=== PATIENT | male | born 1970 | race Hispanic/Latino ===

== ENCOUNTER 2020-08-22 07:26 | Emergency (ER) | payer MEDICAID ==
[2020-08-22] MEDS ORDERED: NALOXONE 2 MG/2 ML INJ IV ONE (07:56)
[2020-08-22] MEDS ORDERED: NALOXONE 2 MG/2 ML INJ ONE (07:57)
[2020-08-22 08:25] LABS: Basophils % (Auto) 0.7 % (0.0-1.8); Eosinophils # (Auto) 0.2 K/mm3 (0.0-0.4); Eosinophils % (Auto) 3.5 % (0.0-4.3); Hematocrit 39.7 % (35.5-45.6); Hemoglobin 13.2 gm/dl (11.8-15.2); Lymphocytes # (Auto) 1.2 K/mm3 (1.2-5.4); Mean Corpuscular HGB Conc 33 % (32-34); Mean Corpuscular Volume 92 fl (84-94); Monocytes # (Auto) 0.8 K/mm3 (0.0-0.8); Monocytes % (Auto) 12.6 % (0.0-7.3); Platelet Count 116 K/mm3 (140-440); Red Cell Distribution Width 14.4 % (13.2-15.2)
--- NOTE | 2020-08-22 08:39 | XRay Report ---
CHEST 1 VIEW INDICATION: ams. COMPARISON: None FINDINGS: Support devices: None. Heart: Within normal limits. Lungs/Pleura: No acute air space or interstitial disease. Additional findings: None. IMPRESSION: No acute findings. Signer Name: Steffen Mena Jr, MD Signed: 08/22/2020 8:35 AM Workstation Name: [id number]
[2020-08-22 08:46] LABS: Blood Urea Nitrogen 11 mg/dL (9-20); Calcium 8.8 mg/dL (8.4-10.2); Hemolysis Index 9
[2020-08-22 08:48] LABS: BUN/Creatinine Ratio 16
[2020-08-22 08:49] LABS: Albumin 3.7 g/dL (3.9-5); Bilirubin,Direct 0.4 mg/dL (0-0.2)
--- NOTE | 2020-08-22 08:50 | Emergency Department Report ---
ED Altered Mental Status HPI - General Chief Complaint: Altered Mental Status Stated Complaint: ALTERED MENTAL STATUS Time Seen by Provider: 08/22/20 07:44 Source: EMS Mode of arrival: Stretcher Limitations: Altered Mental Status - History of Present Illness Initial Comments: 50-year-old male, history of diabetes, presents to ED with altered mental status and hypoglycemia. Per EMS, they ran on patient 3 times last night and this morning. Each time, patient was hypoglycemic and was treated with oral glucose. This morning, EMS states that patient's girlfriend reports that she gave patient insulin of unknown amount because she thought that patient's glucose might have been elevated. Upon arrival to patient this morning, patient had a glucose of 50. He was given oral glucose and also 1 amp of D50 and transported to the ED. MD Complaint: altered mental status -: This morning Severity: moderate Context: history of similar presen, diabetes Treatments Prior to Arrival: glucose - Related Data Allergies Allergy/AdvReac Type Severity Reaction Status Date / Time No Known Allergies Allergy Unverified 08/22/20 10:52 ED Review of Systems ROS: Stated complaint: ALTERED MENTAL STATUS Other details as noted in HPI Comment: Unobtainable due to pts medical conditions ED Past Medical Hx - Past Medical History Previous Medical History?: Yes Hx Diabetes: Yes - Social History Smoking Status: Unknown if ever smoked ED Physical Exam - General Limitations: Altered Mental Status General appearance: obtunded - Head Head exam: Present: atraumatic, normocephalic - Eye Pupils: Present: other (pinpoint pupils bilaterally) - ENT ENT exam: Present: mucous membranes moist - Neck Neck exam: Present: normal inspection - Respiratory Respiratory exam: Present: normal lung sounds bilaterally. Absent: respiratory distress - Cardiovascular Cardiovascular Exam: Present: regular rate, normal rhythm - GI/Abdominal GI/Abdominal exam: Present: soft. Absent: distended, tenderness - Extremities Exam Extremities exam: Present: normal inspection - Neurological Exam Neurological exam: Present: altered (lethargic), oriented X3, other (arousable, moves all extremities, speech is clear) - Psychiatric Psychiatric exam: Present: normal affect, normal mood - Skin Skin exam: Present: warm, dry, intact, normal color ED Course Vital Signs 08/22/20 08/22/20 08/22/20 07:35 08:00 08:02 Temperature Pulse Rate 74 64 67 Respiratory 20 20 Rate Blood Pressure Blood Pressure 118/76 [Left] O2 Sat by Pulse 97 97 Oximetry 08/22/20 08/22/20 08/22/20 08:14 08:16 08:50 Temperature 98.3 F Pulse Rate 62 72 64 Respiratory 20 18 14 Rate Blood Pressure 132/72 130/82 130/82 Blood Pressure [Left] O2 Sat by Pulse 97 96 Oximetry 08/22/20 08/22/20 08/22/20 09:01 09:15 09:31 Temperature Pulse Rate 71 67 66 Respiratory 18 19 17 Rate Blood Pressure 130/82 143/92 143/92 Blood Pressure [Left] O2 Sat by Pulse 97 97 98 Oximetry 08/22/20 08/22/20 08/22/20 09:45 10:01 10:15 Temperature Pulse Rate 67 67 66 Respiratory 19 18 19 Rate Blood Pressure 143/92 112/80 112/80 Blood Pressure [Left] O2 Sat by Pulse 97 97 97 Oximetry 08/22/20 08/22/20 08/22/20 10:31 10:45 11:00 Temperature Pulse Rate 66 67 67 Respiratory 19 16 18 Rate Blood Pressure 112/80 112/80 130/79 Blood Pressure [Left] O2 Sat by Pulse 96 97 97 Oximetry 08/22/20 08/22/20 08/22/20 11:15 11:31 12:25 Temperature Pulse Rate 64 66 82 Respiratory 15 18 18 Rate Blood Pressure 130/79 130/79 Blood Pressure 132/78 [Left] O2 Sat by Pulse 98 97 99 Oximetry - Lab Data Result diagrams: 08/22/20 08:07 08/22/20 08:07 Lab Results 08/22/20 08/22/20 08/22/20 Range/Units 08:07 08:07 08:07 WBC 6.1 (4.5-11.0) K/mm3 RBC 4.30 (3.65-5.03) M/mm3 Hgb 13.2 (11.8-15.2) gm/dl Hct 39.7 (35.5-45.6) % MCV 92 (84-94) fl MCH 31 (28-32) pg MCHC 33 (32-34) % RDW 14.4 (13.2-15.2) % Plt Count 116 L (140-440) K/mm3 Lymph % (Auto) 20.0 (13.4-35.0) % [place] % (Auto) 12.6 H (0.0-7.3) % Eos % (Auto) 3.5 (0.0-4.3) % Baso % (Auto) 0.7 (0.0-1.8) % Lymph # (Auto) 1.2 (1.2-5.4) K/mm3 [place] # (Auto) 0.8 (0.0-0.8) K/mm3 Eos # (Auto) 0.2 (0.0-0.4) K/mm3 Baso # (Auto) 0.0 (0.0-0.1) K/mm3 Seg Neutrophils % 63.2 (40.0-70.0) % Seg Neutrophils # 3.9 (1.8-7.7) K/mm3 Sodium 139 (137-145) mmol/L Potassium 3.1 L (3.6-5.0) mmol/L Chloride 102.4 (98-107) mmol/L Carbon Dioxide 27 (22-30) mmol/L Anion Gap 13 mmol/L BUN 11 (9-20) mg/dL Creatinine 0.7 L (0.8-1.3) mg/dL Estimated GFR > 60 ml/min BUN/Creatinine Ratio 16 % Glucose 106 H (75-100) mg/dL Calcium 8.8 (8.4-10.2) mg/dL Total Bilirubin 2.00 H (0.1-1.2) mg/dL Direct Bilirubin 0.4 H (0-0.2) mg/dL Indirect Bilirubin 1.6 mg/dL AST 73 H (5-40) units/L ALT 59 H (7-56) units/L Alkaline Phosphatase 69 (35-129) units/L Total Protein 6.7 (6.3-8.2) g/dL Albumin 3.7 L (3.9-5) g/dL Albumin/Globulin Ratio 1.2 % Urine Color (Yellow) Urine Turbidity (Clear) Urine pH (5.0-7.0) Ur Specific [place] (1.003-1.030) Urine Protein (Negative) mg/dL Urine Glucose (UA) (Negative) mg/dL Urine Ketones (Negative) mg/dL Urine Blood (Negative) Urine Nitrite (Negative) Urine Bilirubin (Negative) Urine Urobilinogen (<2.0) mg/dL Ur Leukocyte Esterase (Negative) Urine WBC (Auto) (0.0-6.0) /HPF Urine RBC (Auto) (0.0-6.0) /HPF Urine Mucus /HPF Salicylates (2.8-20.0) mg/dL Urine Opiates Screen Urine Methadone Screen Acetaminophen (10.0-30.0) ug/mL Ur Barbiturates Screen Ur Phencyclidine Scrn Ur Amphetamines Screen U Benzodiazepines Scrn Urine Cocaine Screen U Marijuana (THC) Screen Drugs of Abuse Note Plasma/Serum Alcohol (0-0.07) % 08/22/20 08/22/20 08/22/20 Range/Units 08:07 08:07 08:07 WBC (4.5-11.0) K/mm3 RBC (3.65-5.03) M/mm3 Hgb (11.8-15.2) gm/dl Hct (35.5-45.6) % MCV (84-94) fl MCH (28-32) pg MCHC (32-34) % RDW (13.2-15.2) % Plt Count (140-440) K/mm3 Lymph % (Auto) (13.4-35.0) % [place] % (Auto) (0.0-7.3) % Eos % (Auto) (0.0-4.3) % Baso % (Auto) (0.0-1.8) % Lymph # (Auto) (1.2-5.4) K/mm3 [place] # (Auto) (0.0-0.8) K/mm3 Eos # (Auto) (0.0-0.4) K/mm3 Baso # (Auto) (0.0-0.1) K/mm3 Seg Neutrophils % (40.0-70.0) % Seg Neutrophils # (1.8-7.7) K/mm3 Sodium (137-145) mmol/L Potassium (3.6-5.0) mmol/L Chloride (98-107) mmol/L Carbon Dioxide (22-30) mmol/L Anion Gap mmol/L BUN (9-20) mg/dL Creatinine (0.8-1.3) mg/dL Estimated GFR ml/min BUN/Creatinine Ratio % Glucose (75-100) mg/dL Calcium (8.4-10.2) mg/dL Total Bilirubin (0.1-1.2) mg/dL Direct Bilirubin (0-0.2) mg/dL Indirect Bilirubin mg/dL AST (5-40) units/L ALT (7-56) units/L Alkaline Phosphatase (35-129) units/L Total Protein (6.3-8.2) g/dL Albumin (3.9-5) g/dL Albumin/Globulin Ratio % Urine Color (Yellow) Urine Turbidity (Clear) Urine pH (5.0-7.0) Ur Specific [place] (1.003-1.030) Urine Protein (Negative) mg/dL Urine Glucose (UA) (Negative) mg/dL Urine Ketones (Negative) mg/dL Urine Blood (Negative) Urine Nitrite (Negative) Urine Bilirubin (Negative) Urine Urobilinogen (<2.0) mg/dL Ur Leukocyte Esterase (Negative) Urine WBC (Auto) (0.0-6.0) /HPF Urine RBC (Auto) (0.0-6.0) /HPF Urine Mucus /HPF Salicylates < 0.3 L (2.8-20.0) mg/dL Urine Opiates Screen Urine Methadone Screen Acetaminophen 5.0 L (10.0-30.0) ug/mL Ur Barbiturates Screen Ur Phencyclidine Scrn Ur Amphetamines Screen U Benzodiazepines Scrn Urine Cocaine Screen U Marijuana (THC) Screen Drugs of Abuse Note Plasma/Serum Alcohol < 0.01 (0-0.07) % 08/22/20 08/22/20 Range/Units 09:45 09:45 WBC (4.5-11.0) K/mm3 RBC (3.65-5.03) M/mm3 Hgb (11.8-15.2) gm/dl Hct (35.5-45.6) % MCV (84-94) fl MCH (28-32) pg MCHC (32-34) % RDW (13.2-15.2) % Plt Count (140-440) K/mm3 Lymph % (Auto) (13.4-35.0) % [place] % (Auto) (0.0-7.3) % Eos % (Auto) (0.0-4.3) % Baso % (Auto) (0.0-1.8) % Lymph # (Auto) (1.2-5.4) K/mm3 [place] # (Auto) (0.0-0.8) K/mm3 Eos # (Auto) (0.0-0.4) K/mm3 Baso # (Auto) (0.0-0.1) K/mm3 Seg Neutrophils % (40.0-70.0) % Seg Neutrophils # (1.8-7.7) K/mm3 Sodium (137-145) mmol/L Potassium (3.6-5.0) mmol/L Chloride (98-107) mmol/L Carbon Dioxide (22-30) mmol/L Anion Gap mmol/L BUN (9-20) mg/dL Creatinine (0.8-1.3) mg/dL Estimated GFR ml/min BUN/Creatinine Ratio % Glucose (75-100) mg/dL Calcium (8.4-10.2) mg/dL Total Bilirubin (0.1-1.2) mg/dL Direct Bilirubin (0-0.2) mg/dL Indirect Bilirubin mg/dL AST (5-40) units/L ALT (7-56) units/L Alkaline Phosphatase (35-129) units/L Total Protein (6.3-8.2) g/dL Albumin (3.9-5) g/dL Albumin/Globulin Ratio % Urine Color Yellow (Yellow) Urine Turbidity Clear (Clear) Urine pH 6.0 (5.0-7.0) Ur Specific [place] 1.016 (1.003-1.030) Urine Protein 30 mg/dl (Negative) mg/dL Urine Glucose (UA) >=500 (Negative) mg/dL Urine Ketones 20 (Negative) mg/dL Urine Blood Neg (Negative) Urine Nitrite Neg (Negative) Urine Bilirubin Neg (Negative) Urine Urobilinogen 4.0 (<2.0) mg/dL Ur Leukocyte Esterase Neg (Negative) Urine WBC (Auto) 1.0 (0.0-6.0) /HPF Urine RBC (Auto) 3.0 (0.0-6.0) /HPF Urine Mucus Few /HPF Salicylates (2.8-20.0) mg/dL Urine Opiates Screen Negative Urine Methadone Screen Negative Acetaminophen (10.0-30.0) ug/mL Ur Barbiturates Screen Negative Ur Phencyclidine Scrn Negative Ur Amphetamines Screen Positive U Benzodiazepines Scrn Positive Urine Cocaine Screen Negative U Marijuana (THC) Screen Positive Drugs of Abuse Note Disclamer Plasma/Serum Alcohol (0-0.07) % - Radiology Data Radiology results: report reviewed, image reviewed - Medical Decision Making 50-year-old male presents to ED with altered mental status. Patient initially seen by EMS who reports that patient was hypoglycemic with a glucose of 50. EMS administer oral glucose and 1 amp of D50. However upon ED arrival patient was still altered. Patient did arouse to painful stimuli. When aroused, patient w as oriented x3. When asked if he had used any drugs patient denied. On exam patient had pinpoint pupils, therefore Narcan was administered for possible opioid overdose. However there was no real improvement following Narcan administration. Remainder of work-up revealed that patient had a urine drug screen that was positive for marijuana, benzodiazepines and amphetamines. Patient stated "I made some bad choices in life," in regards to his positive drug screen. CT head was negative for any acute findings. Chest x-ray was also unremarkable. Labs did show some elevations in patient's liver enzymes, however her abdomen is soft, nontender and he is complaining of no abdominal pain. Patient was able to eat a meal tray. Accu-Chek was normal afterwards and patient was discharged. Patient ambulated much. He has been advised to follow-up on an outpatient basis. Return precautions given. - Differential Diagnosis Hyperglycemia, drug use, CVA Critical care attestation.: If time is entered above; I have spent that time in minutes in the direct care of this critically ill patient, excluding procedure time. ED Disposition Clinical Impression: Hypoglycemia, Amphetamine abuse, Benzodiazepine intoxication, Abnormal liver enzymes, Altered mental status Disposition: DC-01 TO HOME OR SELFCARE Is pt being admited?: No Condition: Stable Instructions: Diabetic Hypoglycemia (ED), Polysubstance Abuse (ED) Referrals: PRIMARY CARE [Primary Care Provider] - 3-5 Days [facility] [Provider Group] - 3-5 Days Time of Disposition: 11:40
--- NOTE | 2020-08-22 09:57 | Cat Scan Report ---
CT head/brain wo con INDICATION / CLINICAL INFORMATION: 50 years Male; ams. TECHNIQUE: Routine CT head without contrast. All CT scans at this location are performed using CT dos e reduction for ALARA by means of automated exposure control. COMPARISON: None. FINDINGS: BRAIN / INTRACRANIAL CONTENTS: The motion as well as the beam hardening along the right supraorbital region degrade the image quality. However, there is moderate cerebral white matter disease with foci of decreased attenuation involving the periventricular and subcortical regions. The findings are nons pecific though may reflect microvascular angiopathy, somewhat advanced for the patient's age. The ventricular system is within normal limits in size and configuration. There is no clear CT eviden ce of acute intracranial hemorrhage or significant mass effect. ORBITS: No significant abnormality of visualized orbits. SINUSES / MASTOIDS: No significant abnormality in the visualized paranasal sinuses or mastoid air marleni ls. CRANIOCERVICAL JUNCTION: No significant abnormality. ADDITIONAL FINDINGS: None. IMPRESSION: 1. There is moderate cerebral white matter disease as described without clear CT evidence of acute in tracranial hemorrhage. Signer Name: Tobi Anderson MD Signed: 08/22/2020 9:52 AM Workstation Name: [id number]
[2020-08-22 10:15] LABS: Bilirubin,Urine NEG (Negative); Blood,Urine NEG (Negative); Color,Urine Yellow (Yellow); Mucus,Urine FEW /HPF
[2020-08-22 10:40] LABS: Cocaine Screen,Urine Negative; Methadone Screen,Urine Negative; Opiate Screen,Urine Negative
[2020-08-22 10:53] LABS: Amphetamine Screen,Urine Positive; Benzodiazepines Screen,Urine Positive; Cannabinoid Screen,Urine Positive
[2020-08-22 12:46] VITALS: BP 132/78
== END 2020-08-22 12:25 | disposition home or self-care (01) ==
LOC: ED 07:26
DX: R41.82 Altered mental status, unspecified (principal); T42.4X5A Adverse effect of benzodiazepines, initial encounter; E11.649 Type 2 diabetes mellitus with hypoglycemia without coma; F15.10 Other stimulant abuse, uncomplicated; R94.5 Abnormal results of liver function studies; Y92.89 Other specified places as the place of occurrence of the external cause
CPT/HCPCS: 36415; 70450; 71045; 80048; 80076; 80307; 81001; 82962; 85025; 96374; 99285; J2310; 80320; G0480